=== PATIENT | male | born 1965 | race Caucasian/White ===

== ENCOUNTER 2017-06-11 20:58 | Emergency (ER) | payer BC ==
--- NOTE | 2017-06-11 22:24 | EDM.PDOC ---
ED HPI GENERAL MEDICAL PROBLEM - General Chief Complaint: Lower Extremity Injury/Pain Stated Complaint: POSS INFECTION FROM SURGERY Time Seen by Provider: 06/11/17 21:33 Source of Information: Reports: Patient History Limitations: Reports: No Limitations - History of Present Illness INITIAL COMMENTS - FREE TEXT/NARRATIVE: 52-year-old male presents for evaluation and treatment of possible postsurgical infection. Patient reports that he had a left hip replacement on June 08 in [place] by at [place]. She was hospitalized for 2 days post hip replacement and discharged home on Wednesday. Reports from hospital he did have a slightly elevated temp of 99-101. Patient reports that he was kept longer than expected due to expense and some lightheadedness and nausea. He states that he lost a fair amount of blood during the surgery but did not require any transfusion. Patient presents tonight as he appreciated some blood present on the dressing and irritation around the dressing. He states when he lifts dressing he appreciates sloughing of the skin. States it is tender in that area. Reports he had a temperature 100.5 tonight. He has been taking tramadol and aspirin. Patient denies any pain to the left hip. Significantly improved since surgery. His daughter is present at bedside and states that he is not have much feeling in that leg. He reports a slight cough. Denies any nausea or vomiting. No drainage from the wound. Postsurgical dressing is Aquacel. Patient reports he chronically has an elevated heart rate. States he had an elevated heart rate throughout his hospital stay but could not identify how high. Left Leg Pain Score (Numeric/FACES): 0 - Related Data Allergies Allergy/AdvReac Type Severity Reaction Status Date / Time No Known Allergies Allergy Verified 06/11/17 21:19 Home Meds: Home Meds Aspirin [Halfprin] 81 mg PO DAILY 06/11/17 [History] Meloxicam 15 mg PO DAILY 06/11/17 [History] traMADol [Ultram] 50 mg PO Q6H PRN 06/11/17 [History] Past Medical History Other Musculoskeletal History: [id number]- FUSION; RADIAL HEAD REMOVED TO RIGHT ELBOW; WRIST SURGERY LEFT SIDE 2 TIMES - Past Surgical History HEENT Surgical History: Reports: Tonsillectomy Musculoskeletal Surgical History: Reports: Hip Replacement Other Musculoskeletal Surgeries/Procedures:: 06-08-17 Social & Family History - Tobacco Use Smoking Status *Q: Never Smoker - Caffeine Use Caffeine Use: Reports: Coffee, Soda - Recreational Drug Use Recreational Drug Use: No Review of Systems - Review of Systems Review Of Systems: See Below Constitutional: Reports: Fever (reports temperature of 100.5 at home) Respiratory: Reports: Cough GI/Abdominal: Denies: Nausea, Vomiting Musculoskeletal: Reports: Other (denies any pain to the left hip) Skin: Reports: Erythema (rectangular area surrounging the surgical incision in the shape of the adhesive aquacel), Wound (post surgical incision well approximated) ED EXAM, GENERAL - Physical Exam Exam: See Below Exam Limited By: No Limitations General Appearance: Alert, WD/WN, No Apparent Distress Neck: Normal Inspection Respiratory/Chest: No Respiratory Distress, Lungs Clear, Normal Breath Sounds Cardiovascular: Normal Peripheral Pulses, No Murmur, Tachycardia Extremities: Other (rectangular area surrounging the surgical incision in the shape of the adhesive aquacel; erythematous area is weaping clear serous fluid, small area of blistering present ; surgical incision is well healed without can drainage) Neurological: Alert, Oriented Psychiatric: Normal Affect, Normal Mood Skin Exam: Warm, Dry, Normal Color Course - Vital Signs Last Recorded V/S: Last Vital Signs Temp 38.1 C 06/11/17 21:25 Pulse 120 H 06/11/17 21:25 Resp 20 06/11/17 21:25 BP 111/65 06/11/17 21:25 Pulse Ox 92 L 06/11/17 21:25 - Orders/Labs/Meds Orders: Active Orders 24 hr Category Date Time Status Chest 1V Frontal [CR] Stat Exams 06/11/17 21:47 Taken CULTURE BLOOD [BC] Stat Lab 06/11/17 22:06 Received CULTURE BLOOD [BC] Stat Lab 06/11/17 22:12 Received Blood Culture x2 Reflex Set [OM.PC] Stat Oth 06/11/17 21:47 Ordered Labs: Laboratory Tests 06/11/17 06/11/17 06/11/17 Range/Units 22:06 22:06 22:06 WBC 8.79 (4.23-9.07) K/mm3 RBC 2.86 L (4.63-6.08) M/mm3 Hgb 8.5 L (13.7-17.5) gm/L Hct 26.4 L (40.1-51.0) % MCV 92.3 H (79.0-92.2) fl MCH 29.7 (25.7-32.2) pg MCHC 32.2 (32.2-35.5) g/dl RDW Std Deviation 45.4 H (35.1-43.9) fL Plt Count 223 (163-337) K/mm3 MPV 10.5 (9.4-12.3) fl Neutrophils % (Manual) 77 H (40-60) % Band Neutrophils % 0 (0-10) % Lymphocytes % (Manual) 16 L (20-40) % Atypical Lymphs % 0 % Monocytes % (Manual) 4 (2-10) % Eosinophils % (Manual) 3 (0.8-7.0) % Basophils % (Manual) 0 L (0.2-1.2) Platelet Estimate Adequate RBC Morph Comment Normal Sodium 138 (136-145) mEq/L Potassium 3.7 (3.5-5.1) mEq/L Chloride 103 (98-107) mEq/L Carbon Dioxide 27 (21-32) mEq/L Anion Gap 11.7 (5-15) BUN 15 (7-18) mg/dL Creatinine 1.0 (0.7-1.3) mg/dL Est Cr Clr Drug Dosing 93.08 mL/min Estimated GFR (MDRD) > 60 (>60) mL/min BUN/Creatinine Ratio 15.0 (14-18) Glucose 135 H (74-106) mg/dL Lactic Acid 1.2 (0.4-2.0) mmol/L Calcium 7.9 L (8.5-10.1) mg/dL Total Bilirubin 0.7 (0.2-1.0) mg/dL AST 31 (15-37) U/L ALT 30 (16-63) U/L Alkaline Phosphatase 80 (46-116) U/L C-Reactive Protein 24.1 H* (<1.0) mg/dL Total Protein 6.0 L (6.4-8.2) g/dl Albumin 2.4 L (3.4-5.0) g/dl Globulin 3.6 gm/dL Albumin/Globulin Ratio 0.7 L (1-2) - Radiology Interpretation Free Text/Narrative:: chest xray shows no acute intrathoracic process. - Re-Assessments/Exams Free Text/Narrative Re-Assessment/Exam: 06/11/17 23:14 I reviewed the chest x-ray and lab results with patient. I feel the erythema surrounding the wound is not from a cellulitis or an infected joint but likely from an irritation to the Aquacel. Since removal of the Aquasol there is a rectangular erythematous weeping area to the perimeter of the Aquasol. I feel he has a irritation to the adhesive. His lab studies look good. I will have him follow-up next week with either family medicine or his orthopedic provider for recheck on the irritation and for a recheck on his hemoglobin. Discharge instructions document. Departure - Departure Time of Disposition: 23:18 Disposition: Home, Self-Care 01 Condition: Good Clinical Impression: Contact dermatitis due to adhesive bandage - Discharge Information Referrals: PCP,Jakob [Primary Care Provider] - Vahid Raymond [Physician] - Forms: ED Department Discharge Additional Instructions: Continue with your current plan of care. Keep the wound covered and avoid adhesives. Follow-up next week with either your orthopedic provider or family practice provider for recheck on the irritated area and to recheck your low hemoglobin. Recommend Dr. Burr at the [facility]. Please call [phone] schedule an appointment with him. Please return to the ER if your symptoms change or worsen. - My Orders Last 24 Hours: My Active Orders 06/11/17 21:47 Chest 1V Frontal [CR] Stat Blood Culture x2 Reflex Set [OM.PC] Stat 06/11/17 22:06 CULTURE BLOOD [BC] Stat 06/11/17 22:12 CULTURE BLOOD [BC] Stat - Assessment/Plan Last 24 Hours: My Active Orders 06/11/17 21:47 Chest 1V Frontal [CR] Stat Blood Culture x2 Reflex Set [OM.PC] Stat 06/11/17 22:06 CULTURE BLOOD [BC] Stat 06/11/17 22:12 CULTURE BLOOD [BC] Stat
--- NOTE | 2017-06-14 07:39 | CR ---
Chest: Portable view of the chest was obtained. Comparison: Previous chest x-ray of 10/01/15. Heart size and mediastinum are within normal limits for portable technique. Lungs are clear with no acute infiltrates. Slight degenerative change is noted within the spine with minimal scoliosis. Impression: 1. Nothing acute is identified on portable chest x-ray. Diagnostic code #2
== END 2017-06-11 23:27 | disposition home or self-care (01) ==
LOC: SUPCPDRO 20:58 → JD.ED 20:58
DX: L25.8 Unspecified contact dermatitis due to other agents (principal); Z79.82 Long term (current) use of aspirin
CPT/HCPCS: 36415; 71010; 71010-26; 80053; 83605; 85025; 86140; 87040; 99282; 99283

== ENCOUNTER 2022-07-26 22:07 | Emergency (ER) | payer BC ==
[2022-07-26] MEDS ORDERED: HYDROmorphone 1 MG/ML Syringe IVPUSH ONE (22:47)
[2022-07-26] MEDS ORDERED: Ondansetron 4 MG/2 ML SDV IVPUSH ONE (22:47)
[2022-07-26] MEDS ORDERED: Sodium Chloride 0.9% 1,000 ML IV SCH (23:00)
[2022-07-26 23:11] LABS: ESTIMATED GFR 64 mL/min (>60)
[2022-07-26] MEDS ORDERED: Iopamidol 612 MG/ML 100 ML Bottle IVPUSH ONE (23:36)
[2022-07-27] MEDS ORDERED: Tamsulosin 0.4 MG Cap.ER PO ONE (02:35)
== END 2022-07-27 03:16 | disposition home or self-care (01) ==
LOC: JD.ED 22:07
DX: N20.1 Calculus of ureter (principal); Z79.82 Long term (current) use of aspirin; Z79.899 Other long term (current) drug therapy
CPT/HCPCS: 36415; 74177; 80053; 81001; 83690; 85007; 85027; 96361; 96374; 96375; 99284; A9270; J1170; J2405; J7030; Q9967

== ENCOUNTER 2023-01-23 01:14 | Emergency (ER) | payer BC ==
[2023-01-23] MEDS ORDERED: Diphtheria,Pertussis(Acell),Tetanus Vaccine 0.5 ML Syringe IM ONE (01:46)
[2023-01-23] MEDS ORDERED: Ibuprofen 600 MG Tab PO ONE (01:47)
[2023-01-23] MEDS ORDERED: Cephalexin 500 MG Cap PO STA (01:47)
== END 2023-01-23 02:08 | disposition home or self-care (01) ==
LOC: JD.ED 01:14
DX: S61.432A Puncture wound without foreign body of left hand, initial encounter (principal); Z23 Encounter for immunization; W26.8XXA Contact with other sharp object(s), not elsewhere classified, initial encounter
CPT/HCPCS: 90471; 90715; 99283; A9270